=== PATIENT | female | born 1990 | race Caucasian/White ===

== ENCOUNTER → 2016-04-28 | Outpatient (CLI) | payer MEDICAID | LOC: RAD 09:03 | PROVIDERS: ATTEND Physician Assistant | DX: M54.2 Cervicalgia (principal); Z53.29 Procedure and treatment not carried out because of patient's decision for other reasons ==

== ENCOUNTER → 2018-10-17 | Outpatient (CLI) | payer MEDICAID ==
[2018-10-17 17:39] LABS: ARTERIAL BLOOD BASE EXCESS -2.7 mmol/L; ARTERIAL BLOOD H2CO3 1.27 mmol/L (1.05-1.35); ARTERIAL BLOOD HCO3 22.8 mmol/L (20-24); ARTERIAL BLOOD O2 SATURATION 95.7 % (94-98); ARTERIAL BLOOD PCO2 42.2 mmHg (35-45); ARTERIAL BLOOD PH 7.35 (7.35-7.45); ARTERIAL BLOOD PO2 82.8 mmHg (80-100); ARTERIAL BLOOD TOTAL CO2 24.1 mmol/L (21-25)
[2018-10-17 17:42] LABS: ARTERIAL BLOOD FIO2 21%
[2018-10-17 17:58] LABS: ABSOLUTE EOSINOPHILS # (AUTO) 0.3 10^3/uL (0.0-0.6); ABSOLUTE MONOCYTES (AUTO) 0.4 10^3/uL (0.1-1.4); BASOPHILS % (AUTO) 0.4 % (0-2); EOSINOPHILS % (AUTO) 3.6 % (0-6); HEMOGLOBIN 12.4 g/dL (12.0-15.5); MONOCYTES % (AUTO) 4.8 % (3-13); PLATELET COUNT 185 10^3/uL (150-450); TOTAL CELLS COUNTED % (AUTO) 100 %
[2018-10-17 18:04] LABS: ABSOLUTE LYMPHOCYTES (AUTO) 2.6 10^3/uL (0.5-4.7); ABSOLUTE NEUT (AUTO) 5.8 10^3/uL (1.7-8.2); HEMATOCRIT 38.2 % (36.0-47.0); LYMPHOCYTES % (AUTO) 28.6 % (13-45); MEAN CORPUSCULAR HEMOGLOBIN 28.7 pg (27.0-33.4); MEAN CORPUSCULAR HGB CONC 32.4 g/dL (32.0-36.0); MEAN CORPUSCULAR VOLUME 89 fl (80-97); RED BLOOD COUNT 4.31 10^6/uL (3.72-5.28); RED CELL DISTRIBUTION WIDTH 15.4 % (11.5-14.0); SEGMENTED NEUTROPHILS % (AUTO) 62.6 % (42-78); WHITE BLOOD COUNT 9.2 10^3/uL (4.0-10.5)
[2018-10-17 18:20] LABS: ALANINE AMINOTRANSFERASE 115 U/L (9-52); ALBUMIN 4.2 g/dL (3.5-5.0); ALKALINE PHOSPHATASE 219 U/L (38-126); ANION GAP 7 (5-19); ASPARTATE AMINO TRANSFERASE 58 U/L (14-36); BILIRUBIN,DIRECT 0.2 mg/dL (0.0-0.4); BILIRUBIN,TOTAL 0.2 mg/dL (0.2-1.3); BLOOD UREA NITROGEN 18 mg/dL (7-20); CARBON DIOXIDE 29 mmol/L (22-30); CHLORIDE 105 mmol/L (98-107); GLUCOSE 82 mg/dL (75-110); TOTAL PROTEIN 6.8 g/dL (6.3-8.2)
--- NOTE | 2018-10-17 19:00 | RADIOLOGY REPORT (SQ) ---
EXAM DESCRIPTION: CHEST 2 VIEWS COMPLETED DATE/TIME: 10/17/2018 5:12 pm REASON FOR STUDY: R06.00 DYSPNEA, UNSPECIFIED COMPARISON: 02/04/2016 EXAM PARAMETERS: NUMBER OF VIEWS: two views TECHNIQUE: Digital Frontal and Lateral radiographic views of the chest acquired. RADIATION DOSE: NA LIMITATIONS: none FINDINGS: LUNGS AND PLEURA: No opacities, masses or pneumothorax. No pleural effusion. MEDIASTINUM AND HILAR STRUCTURES: No masses or contour abnormalities. HEART AND VASCULAR STRUCTURES: Heart normal size. No evidence for failure. BONES: No acute findings. HARDWARE: None in the chest. OTHER: No other significant finding. IMPRESSION: NO ACUTE RADIOGRAPHIC FINDING IN THE CHEST. TECHNICAL DOCUMENTATION: JOB ID: [id number] [employer]- All Rights Reserved Reading location - IP/workstation name: ART
== END ==
LOC: LAB 16:55
PROVIDERS: ATTEND Registered Nurse
DX: R06.00 Dyspnea, unspecified (principal)
CPT/HCPCS: 36415; 36600; 71046; 80053; 82803; 83880; 85025

== ENCOUNTER → 2020-03-23 | Outpatient (CLI) | payer MEDICAID ==
--- NOTE | 2020-03-23 21:43 | XCELERA REPORT ---
[address] [address] Transthoracic Echocardiogram Report Name: SATHYA GARCIA Age: 30 yrs Gender: Female : 1990 Patient Status: Outpatient Patient Location: Study Date: 03/23/2020 01:03 PM History: PAH Height: 63 in Weight: 291 lb BSA: 2.3 m2 Procedure: A complete two-dimensional transthoracic echocardiogram was performed (2D, M-mode, spectral and color flow Doppler). The study was technically difficult with many images being suboptimal in quality. Reason For Study: PULMONARY HTN Previous Evaluation: No previous studies were available. History: PAh. Ordering Physician: LANG LOVE Performed By: Marylin Mejia Interpretation Summary Extremely diffiuclt study. Visuall assessment of valves and khan poor. Doppler assessmemnt is also suboptimal. Unable to comment on PA pressures due to poor study quality/body habitus/acoustic windows. Due to the poor quality of the echocardiogram, an assessment of left ventricular ejection fraction cannot be made. Best estimate is 50-55%. The right ventricle is normal in size and function. There is no mitral regurgitation noted. There is no aortic valve stenosis There is a trace amount of tricuspid regurgitation Tricuspid regurgitation jet envelope not well defined to measure RV systolic pressure accurately. There is no pericardial effusion. MMode/2D Measurements & Calculations RVDd: 2.5 cm LVIDd: 4.5 cm FS: 30.3 % Ao root diam: 2.8 cm IVSd: 1.3 cm LVIDs: 3.1 cm EDV(Teich): 92.9 ml Ao root area: 6.3 cm2 LVPWd: 1.1 cm ESV(Teich): 39.2 ml EF(Teich): 57.8 % Doppler Measurements & Calculations MV E max nancy: MV dec slope: Ao V2 max: LV V1 max P.6 cm/sec 925.0 cm/sec2 170.6 cm/sec 9.2 mmHg MV A max nancy: MV dec time: 0.11 secAo max PG: LV V1 max: 90.2 cm/sec 11.6 mmHg 151.3 cm/sec MV E/A: 1.1 PA V2 max: TR max nancy: 110.9 cm/sec 272.4 cm/sec PA max P.9 mmHg TR max P.8 mmHg Left Ventricle The left ventricle is normal in size. There is mild to moderate concentric left ventricular hypertrophy. Due to the poor quality of the echocardiogram, an assessment of left ventricular ejection fraction cannot be made. Best estimate is 50-55%. LV diastolic function not assessed. Wall motion cannot be accurately commented on, but no definite regional wall motion abnormalities noted. Right Ventricle The right ventricle is normal in size and function. Atria The right atrium is normal. The left atrium is mildly dilated. Mitral Valve The mitral valve is grossly normal. There is no mitral valve stenosis. There is no mitral regurgitation noted. Aortic Valve The aortic valve is not well visualized secondary to technical limitations. There is no aortic valve stenosis. Tricuspid Valve The tricuspid valve is not well visualized secondary to technical limitations. There is no tricuspid stenosis. There is a trace amount of tricuspid regurgitation. Tricuspid regurgitation jet envelope not well defined to measure RV systolic pressure accurately. Great Vessels The aortic root is normal size. Effusions There is no pericardial effusion. : LANG LOVE Anil
== END ==
LOC: SP 12:19
PROVIDERS: ATTEND Internal Medicine Pulmonary Disease
DX: I27.20 Pulmonary hypertension, unspecified (principal)
CPT/HCPCS: 93306